=== PATIENT | male | born 1970 | race Caucasian/White ===

== ENCOUNTER 2017-06-08 13:13 | Emergency (ER) | payer MEDICAID ==
[~2017-06-08] VITALS: Ht 165.1 cm; Wt 89.4 kg
[~2017-06-08 13:13] MED LIST: BACTDS PO; CEPH-443 PO; HYDR-906 PO; LEVA15HF6 INH
[2017-06-08 13:22] VITALS: Ht 165.1 cm; Wt 89.4 kg
[2017-06-08] MEDS ORDERED: ALBUTEROL 0.083% (NEB) 2.5 MG/3 ML AMP NEB STA (15:51)
[2017-06-08] MEDS ORDERED: IPRATROPIUM (NEB) 0.5 MG/2.5 ML AMP NEB STA (15:51)
[2017-06-08] MEDS ORDERED: predniSONE 20 MG TAB PO STA (15:51)
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
--- NOTE | 2017-06-08 17:02 | RADRPT ---
PROCEDURE: XR Chest. CLINICAL INDICATION: Asthma exacerbation. TECHNIQUE: Single frontal view of the chest was obtained. COMPARISON: 05/22/2013. FINDINGS: The cardiomediastinal silhouette is normal in size. No focal consolidation is seen. No pleural effusion is seen. No definite pneumothorax. No acute osseous abnormality. IMPRESSION: No radiographic evidence of an acute cardiopulmonary process. RPTAT: AAEE Sky Amanda Physician Date Time Electronically viewed and signed by Sky Amanda Physician on 06/08/2017 17:02 /
[2017-06-08] MEDS ORDERED: IBUP-1542 PO (17:17)
[2017-06-08] MEDS ORDERED: CETI10CA PO (17:17)
[2017-06-08] MEDS ORDERED: ALBU18HF INHALATION (17:17)
[2017-06-08] MEDS ORDERED: PRED20TA PO (17:17)
[2017-06-08 17:53] VITALS: BP 120/85; PULSE 73; RESP 20; TEMP 98.8
== END 2017-06-08 17:54 | disposition home or self-care (01) ==
LOC: FTE 13:13
DX: J45.901 Unspecified asthma with (acute) exacerbation (principal)
CPT/HCPCS: 71010; 94664; J7512; Z7502; Z7610; 94640